=== PATIENT | male | born 1935 | race Caucasian/White ===

== ENCOUNTER → 2023-05-07 16:44 | Outpatient (REF) | payer OTHER, SELFPAY | LOC: HWRAD 16:44 | PROVIDERS: ATTENDING PHYSICIAN Family Medicine | DX: R91.8 Other nonspecific abnormal finding of lung field (principal) | CPT/HCPCS: 71046 ==

== ENCOUNTER 2023-05-25 10:50 | Emergency (ER) | payer OTHER, SELFPAY ==
[2023-05-25 11:00] VITALS: BP 124/70
[2023-05-25 12:01] VITALS: BP 123/61
--- NOTE | 2023-05-25 12:33 | ED.GENMED ---
History of Present Illness
General
Chief Complaint: Fall
Source: patient
Exam Limitations: none
Time Seen by Provider: 05/25/23 11:57
Travel History
Have you had any contact with someone who has COVID-19?: No
Do you have any symptoms of coronavirus? Fever > 100 degrees, chills, cough, shortness of breath, sore throat, loss of taste or smell, muscle aches, or headache?: No
History of Present Illness
History of Present Illness:
88-year-old male who comes from home who states he missed a step and fell down on his buttocks and injured his right toe. He does state he hit his head. He is anticoagulated. He denies headache or vision changes. No loss of consciousness. No
vomiting. No neck pain. No back pain. No numbness or tingling. Complains of pain to the right toes
Past History
Past History
ED Past Medical History: Hypercholesterolemia, NIDDM and Other (Diverticulitis, kidney stone, DVT); Negative Asthma or HTN
ED Past Surgical History: Appendectomy
Social History
Tobacco: Non-smoker
Alcohol: Occasional
Personal:
Living: with family
Phy Exam
Physical Exam
Physical Exam:
CONSTITUTIONAL Patient alert and oriented to person, place and time. Well-appearing. Vital signs reviewed.
HEAD atraumatic, normocephalic.
EYES eyelids normal to inspection, Extraocular muscles intact, Conjunctiva normal, Sclera normal.
NECK normal range of motion, Trachea midline, no jugular venous distention.
RESPIRATORY CHEST No respiratory distress noted, Chest expansion equal
BACK normal inspection, no obvious deformities
UPPER EXTREMITY range of motion normal, Motor strength normal, no cyanosis, no edema.
LOWER EXTREMITY range of motion normal, Motor strength normal, no cyanosis, no edema.eccymosis noted to base of the R 2nd digit. mild TTP at 1st and 2nd toe bases. nl perfusion
NEURO Speech normal, No focal motor deficits, Oakley coma scale 15, Memory normal, Cranial Nerves intact to screening exam.
SKIN skin warm, dry, and normal in color.
PSYCHIATRIC patient oriented to person place and time, Normal affect.
Course
Orders/Labs/Results
Orders:
Orders
05/25/23 10:58
CT Head W/o Iv Contrast Urgent
Comment:
Reason For Exam: fall on thnners
Toes 2 Views, Right [CR Toe(s) Min 2 Vw Right] Urgent
Comment:
Reason For Exam: fall down steps
Indicate Which Toe:: Great
05/25/23 12:32
boot [Ortho Boot Right- Treatment] ONCE
Short or tall?: Short
Vital Signs
Initial and Last Documented VS:
Initial Vital Signs
Temp Pulse Resp BP Pulse Ox
97.9 F 96 17 124/70 99
05/25/23 11:00 05/25/23 11:00 05/25/23 11:00 05/25/23 11:00 05/25/23 11:00
Last Documented Vital Signs
Temp Pulse Resp BP Pulse Ox
97.9 F 76 18 123/61 99
05/25/23 11:00 05/25/23 12:01 05/25/23 12:01 05/25/23 12:01 05/25/23 12:01
MDM/Problems Addressed
MDM/Problems Addressed:
Fall, head injury, toe fractures
*Pulse Oximetry
Patient hypoxic: no
*Critical Care Note
Total Time (30-74mins, 75-104mins- exclusive of procedures): Not Applicable
Data Reviewed
Source: patient and family
Further Testing Considered But Not Given:
Consider C-spine imaging but no midline tenderness
Patient Management
Escalation/DeEscalation of care consider admission/obs:
88-year-old male who presents after a fall. Appears well. Place short boot and advise follow-up
ED Attending Note
-
Portions of this chart may have been created with voice recognition software.� Occasional wrong word or��sound alike� substitutions may have occurred due to the inherent limitations of voice recognition software.
Discharge Plan
Departure
Patient Disposition: Home (Routine Discharge)
Date of Disposition: 05/25/23
Time of Disposition: 12:36
Patient with high blood pressure during this ER visit?: No
Discharge Problem:
Head injury, Fracture of toe
Instructions: Head Injury in Adults (DC), Toe Fracture (DC)
Prescriptions:
No Action
ascorbic acid (vitamin C) [Vitamin C] 500 MG tablet
500 mg PO DAILY
latanoprost 1 DROP drops
1 drp BOTH EYES HS
Patient Comments:
1 drop both eyes at bedtime
glipizide 5 MG tablet extended release 24hr
10 mg PO DAILY
aspirin 81 MG tablet,delayed release (DR/EC)
81 mg PO DAILY
tamsulosin 0.4 MG capsule
0.4 mg PO HS
cholecalciferol (vitamin D3) 1,000 UNITS tablet
1,000 units PO DAILY
amlodipine 5 MG tablet
5 mg PO DAILY
atorvastatin 80 MG tablet
80 mg PO DAILY
lisinopril 5 MG tablet
2.5 ng PO DAILY
Patient Comments:
temporarily on hold
ezetimibe 10 MG tablet
10 mg PO DAILY
jthlfcic-pxj-UA-lycopen-lutein [Centrum Silver] 1 EACH tablet
1 tab PO DAILY
rivaroxaban [Xarelto] 20 MG tablet
20 mg PO DAILY
cephalexin 250 mg capsule
250 mg PO Q12H Qty: 10 0RF
Referrals:
Deshawn Winters MD [Family Provider] -
Activity Restrictions/Additional Instructions:
Please ice your injured foot. Please elevate your foot. Return immediately for change in mentation, vomiting, headache, weakness of any kind or any other concerns.
Interventions
Interventions:
*Risk Screen - Suicide Last Done: 05/25/23 12:01
*General Assessment Last Done: 05/25/23 12:01
*Neglect/Abuse Screening Last Done: 05/25/23 12:01
*ED COVID-19 Vaccine History Last Done: 05/25/23 12:01
ED-Musculoskeletal Assessment Last Done: 05/25/23 12:01
ED- Neurological Assessment Last Done: 05/25/23 12:01
ED-Skin Assessment Last Done: 05/25/23 12:01
[2023-05-25 13:18] VITALS: BP 122/88
== END 2023-05-25 13:19 | disposition home or self-care (01) ==
LOC: EMR 10:50
PROVIDERS: EMERGENCY PHYSICIAN Emergency Medicine; FAMILY PHYSICIAN Family Medicine
DX: S09.90XA Unspecified injury of head, initial encounter (principal); S92.411A Displaced fracture of proximal phalanx of right great toe, initial encounter for closed fracture; W10.9XXA Fall (on) (from) unspecified stairs and steps, initial encounter; E78.00 Pure hypercholesterolemia, unspecified; E11.9 Type 2 diabetes mellitus without complications; Z86.718 Personal history of other venous thrombosis and embolism; Z87.442 Personal history of urinary calculi; Z90.49 Acquired absence of other specified parts of digestive tract
CPT/HCPCS: 99284; 70450; 73660

== ENCOUNTER → 2023-09-04 11:33 | Outpatient (REF) | payer MEDICARE, SELFPAY | LOC: RAD 11:33 | PROVIDERS: ATTENDING PHYSICIAN Surgery; FAMILY PHYSICIAN Family Medicine | DX: N20.0 Calculus of kidney (principal); N40.1 Benign prostatic hyperplasia with lower urinary tract symptoms; Z87.442 Personal history of urinary calculi | CPT/HCPCS: 76775 ==